=== PATIENT | male | born 1995 | race Caucasian/White ===

== ENCOUNTER 2023-05-09 09:25 | Emergency (ER) | payer OTHER ==
[~2023-05-09] VITALS: Ht 167.6 cm; Wt 106.8 kg
[2023-05-09 09:30] VITALS: TEMP 97.7
[2023-05-09] MEDS ORDERED: Ondansetron 4 MG/2 ML VIAL IV PRN (09:45)
[2023-05-09] MEDS ORDERED: NS 1,000 ML IV ONE (09:45)
[2023-05-09] MEDS ORDERED: Morphine 4 MG/ML VIAL IV PRN (09:45)
[2023-05-09 09:47] LABS: BASO % 0.2 % (0.0-2.0); EOS % 0.2 % (0.0-4.0); GRAN # 8.7 K/mm3 (1.4-6.5); HEMATOCRIT 48.6 % (42.0-52.0); HEMOGLOBIN 16.7 g/dl (13.5-18.0); LYMPH % 17.4 % (20.0-51.0); MEAN CELL VOLUME 85 fl (80.0-100.0); MEAN CORPUSCULAR HEMOGLOBIN 29 pg (27-31); MEAN CORPUSCULAR HGB CONC 34 g/dl (33.0-37.0); MEAN PLATELET VOLUME 9.8 fl (7.4-10.4); MONO # 0.6 K/mm3 (0.1-0.6); MONO % 4.9 % (1.7-9.3); PLATELET COUNT 353 K/mm3 (130-400); RED BLOOD COUNT 5.69 M/mm3 (4.20-5.60)
[2023-05-09 10:11] LABS: ALBUMIN 4.7 gm/dL (3.5-5.0); BILIRUBIN,TOTAL 0.6 mg/dL (0.2-1.2); CREATININE, serum 0.86 mg/dL (0.72-1.25); TOTAL PROTEIN 8.1 gm/dL (6.2-8.1)
[2023-05-09] MEDS ORDERED: NS 100 ML IV SCH (10:26)
[2023-05-09] MEDS ORDERED: Iohexol 300 - 100 ML VIAL IV ONE (10:26)
[2023-05-09] MEDS ORDERED: MIRALAX238G PO (11:30)
[2023-05-09] MEDS ORDERED: NORCO 325 MG-51 TAB PO (11:30)
[2023-05-09 11:36] VITALS: BP 135/71; PULSE 60
== END 2023-05-09 11:36 | disposition home or self-care (01) ==
LOC: COL.ER 09:25
PROVIDERS: Personal Emergency Response Attendant
DX: R10.32 Left lower quadrant pain (principal); R11.2 Nausea with vomiting, unspecified; F17.290 Nicotine dependence, other tobacco product, uncomplicated; F17.210 Nicotine dependence, cigarettes, uncomplicated
CPT/HCPCS: J2270; J2405; J7030; Q9967